=== PATIENT | female | born 1950 | race Caucasian/White ===

== ENCOUNTER → 2017-07-12 | Outpatient (CLI) | payer MEDICARE, OTHER ==
--- NOTE | 2017-07-12 10:07 | PCVCIMAG ---
APPROVED REPORT Indications Stenosis History of Smoking Surgery/Intervention Endarterectomy: right Doppler Spectral Velocity Analysis PSV / EDVPSV / EDV ECA (R) 129 / 15 cm/sECA (L) 111 / 13 cm/s dICA (R) 83 / 26 cm/sdICA (L) 75 / 25 cm/s Vin (R) 91 / 32 cm/smICA (L) 100 / 27 cm/s pICA (R) 62 / 20 cm/spICA (L) 165 / 46 cm/s Bulb (R) 72 / 11 cm/sBulb (L) 80 / 16 cm/s dCCA (R) 53 / 13 cm/sdCCA (L) 67 / 17 cm/s mCCA (R) 44 / 10 cm/smCCA (L) 50 / 10 cm/s pCCA (R) pCCA (L) 65 / 11 cm/s Vert (R) 41 / 12 cm/sVert (L) 52 / 13 cm/s ICA/CCA 1.72ICA/CCA 2.46 Basic Measurements Blood Pressure: Pulses: Right Left RightLeft Brachial(Sitting) 134/96buJa908/72mmHgTemporal Real Time B-Mode Imaging Vert. (R)AntegradeVert. (L)Antegrade Findings The right carotid bulb has mild calcified plaque. The left proximal internal carotid artery shows <40% stenosis. The right common carotid artery shows no significant stenosis. The right external carotid artery shows <50% stenosis. The left carotid bulb has moderately severe calcified plaque. The left proximal internal carotid artery shows 60-70% stenosis. The left common carotid artery shows <40% stenosis. The left external carotid artery shows no significant stenosis. Conclusion 1. Right internal carotid artery stenosis (<40%). Prior right endarterectomy 2. Left internal carotid artery stenosis (60-70%) 3. Antegrade vertebral flow
== END | disposition home or self-care (01) ==
LOC: PCVCIMAG 08:23
PROVIDERS: ATTEND Internal Medicine
DX: I65.23 Occlusion and stenosis of bilateral carotid arteries (principal); I25.10 Atherosclerotic heart disease of native coronary artery without angina pectoris; I10 Essential (primary) hypertension; I73.9 Peripheral vascular disease, unspecified; E78.5 Hyperlipidemia, unspecified; G47.33 Obstructive sleep apnea (adult) (pediatric); J44.9 Chronic obstructive pulmonary disease, unspecified; Z95.1 Presence of aortocoronary bypass graft; Z95.5 Presence of coronary angioplasty implant and graft; Z90.710 Acquired absence of both cervix and uterus; Z79.82 Long term (current) use of aspirin; Z87.891 Personal history of nicotine dependence
CPT/HCPCS: 80061; 93005; 93880; G0463

== ENCOUNTER → 2017-07-20 | Outpatient (CLI) | payer MEDICARE ==
--- NOTE | 2017-07-20 11:15 | PCVCIMAG ---
APPROVED REPORT Study performed: 07/20/2017 09:22:40 EXAM: Comprehensive 2D, Doppler, and color-flow Echocardiogram Patient Location: Echo lab Status: routine BSA: 1.94 HR: 57 bpmBP: 126/74 mmHg Rhythm: Bradycardia Other Information Study Quality: Good Risk Factors: Cardiac Risk Factors: SOB, HTN Indications COPD Dyspnea CAD CABG 2D Dimensions LVEF(%): 50.19 (>50%) IVSd: 9.63 (7-11mm) LVDd: 49.09 mm PWd: 9.24 (7-11mm) LVDs: 36.55 (25-40mm) Left Atrium: 37.74 (27-40mm) Aortic Root: 31.92 mm LV Single Plane 4CH: 53.44 % LV Single Plane 2CH: 68.07 %Murillo's LVEF: 60.76 % Biplane EF: 62.8 % Volumes Left Atrial Volume (Systole) Single Plane 4CH: 66.90 mLSingle Plane 2CH: 62.82 mL LA ESV Index: 34.00 mL/m2 Aortic Valve AoV Peak Hernandez.: 1.42 m/s AO Peak Gr.: 8.08 mmHgLVOT Max P.13 mmHg LVOT Max V: 1.02 m/s AI Vmax: 3.84 m/s AI [place]: 2.17 m/s2 AI PHT: 511.69 ms Mitral Valve E/A Ratio: 0.8 MV Decel. Time: 263.24 ms MV E Max Hernandez.: 0.71 m/s MV A Hernandez.: 0.84 m/s IVRT: 96.89 ms Pulmonary Valve PV Peak Hernandez.: 0.97 m/sPV Peak Gr.: 3.78 mmHg Pulmonary Vein P Vein S: 0.39 m/sP Vein A: 0.30 m/s P Vein D: 0.48 m/sP Vein A Dur.: 103.8 msec P Vein S/D Ratio: 0.81 Tricuspid Valve TR Peak Hernandez.: 2.50 m/s TR Peak Gr.: 25.10 mmHg Left Ventricle The left ventricle is normal size. There is normal LV segmental wall motion. There is normal left ventricular wall thickness. Left ventricular systolic function is normal. The left ventricular ejection fraction is within the normal range. LVEF is 55-60%. Grade I - abnormal relaxation pattern. Right Ventricle The right ventricle is normal The right ventricular systolic function is normal. Atria The left atrium size is mildly dilated The right atrium size is mildly dilated. Aortic Valve The aortic valve is minimally sclerotic Mild aortic regurgitation. There is no aortic valvular stenosis. Mitral Valve Mild mitral annular calcification Mild mitral regurgitation. No evidence of mitral valve stenosis. Tricuspid Valve The tricuspid valve is normal in structure. Mild tricuspid regurgitation with PAP of 32 mmHg. Pulmonic Valve The pulmonary valve is normal in structure. There is no pulmonic valvular regurgitation. Great Vessels The aortic root is normal in size. IVC is normal in size and collapses with >50% inspiration Pericardium There is no pericardial effusion. <Conclusion> Left ventricular systolic function is normal. There is normal LV segmental wall motion. LVEF is 55-60%. Grade I diastolic dysfunction Both atria are mildly dilated The aortic valve is minimally sclerotic. Mild aortic regurgitation, no stenosis. Mild mitral annular calcification. Mild mitral regurgitation. Pulmonary artery pressure of 32mmHg There is no pericardial effusion.
== END | disposition home or self-care (01) ==
LOC: PCVCIMAG 09:17
PROVIDERS: ATTEND Internal Medicine
DX: I08.3 Combined rheumatic disorders of mitral, aortic and tricuspid valves (principal); I25.10 Atherosclerotic heart disease of native coronary artery without angina pectoris; J44.9 Chronic obstructive pulmonary disease, unspecified; I73.9 Peripheral vascular disease, unspecified; I10 Essential (primary) hypertension; E78.5 Hyperlipidemia, unspecified; I65.23 Occlusion and stenosis of bilateral carotid arteries; Z95.1 Presence of aortocoronary bypass graft
CPT/HCPCS: 93306

== ENCOUNTER → 2018-01-24 | Outpatient (CLI) | payer MEDICARE | END | disposition home or self-care (01) | LOC: PCVCCLINIC 10:25 | DX: I25.10 Atherosclerotic heart disease of native coronary artery without angina pectoris (principal); I10 Essential (primary) hypertension; I65.23 Occlusion and stenosis of bilateral carotid arteries; I73.9 Peripheral vascular disease, unspecified; E78.5 Hyperlipidemia, unspecified; G47.33 Obstructive sleep apnea (adult) (pediatric); R94.31 Abnormal electrocardiogram [ECG] [EKG]; Z95.1 Presence of aortocoronary bypass graft; Z99.89 Dependence on other enabling machines and devices; Z87.891 Personal history of nicotine dependence; Z79.899 Other long term (current) drug therapy; Z79.82 Long term (current) use of aspirin | CPT/HCPCS: 80061; 93005; G0463 ==

== ENCOUNTER → 2018-08-12 | Outpatient (CLI) | payer MEDICARE ==
--- NOTE | 2018-08-12 10:11 | PCVCIMAG ---
APPROVED REPORT Indications Stenosis Risk Factors Hypertension: Hyperlipidemia CAD, Surgery/Intervention Endarterectomy: right Doppler Spectral Velocity Analysis PSV / EDVPSV / EDV ECA (R) 96 / 9 cm/sECA (L) 96 / 15 cm/s dICA (R) 57 / 20 cm/sdICA (L) 75 / 30 cm/s Vin (R) 82 / 29 cm/smICA (L) 100 / 31 cm/s pICA (R) 58 / 19 cm/spICA (L) 159 / 50 cm/s Bulb (R) 59 / 13 cm/sBulb (L) 64 / 18 cm/s dCCA (R) 55 / 15 cm/sdCCA (L) 60 / 19 cm/s mCCA (R) 49 / 12 cm/smCCA (L) 59 / 16 cm/s Vert (R) 41 / 11 cm/sVert (L) 53 / 16 cm/s ICA/CCA 1.49ICA/CCA 2.65 Basic Measurements Blood Pressure: Pulses: Right Left RightLeft Brachial(Sitting) 152/33fhFd561/78mmHgTemporal Real Time B-Mode Imaging Vert. (R)AntegradeVert. (L)Antegrade Findings The right carotid bulb has mild-moderate calcified plaque. The right proximal internal carotid artery shows <40% stenosis. The right common carotid artery shows no significant stenosis. The right external carotid artery shows no significant stenosis. The left carotid bulb has moderate calcified plaque. The left proximal internal carotid artery shows 60-70% stenosis. The left common carotid artery shows <40% stenosis. The left external carotid artery shows no significant stenosis. Conclusion Right internal carotid artery shows <40% stenosis. Prior right CEA Left common carotid artery stenosis (<40%). Left proximal internal carotid artery 60-70% stenosis Antegrade vertebral flow Similar to June 2017
== END | disposition home or self-care (01) ==
LOC: PCVCIMAG 15:18
PROVIDERS: ATTEND Internal Medicine
DX: I25.10 Atherosclerotic heart disease of native coronary artery without angina pectoris (principal); I65.23 Occlusion and stenosis of bilateral carotid arteries; I10 Essential (primary) hypertension; I73.9 Peripheral vascular disease, unspecified; E78.5 Hyperlipidemia, unspecified; G47.33 Obstructive sleep apnea (adult) (pediatric); Z99.89 Dependence on other enabling machines and devices; Z95.1 Presence of aortocoronary bypass graft; Z87.891 Personal history of nicotine dependence; Z79.82 Long term (current) use of aspirin
CPT/HCPCS: 80061; 93005; 93880; G0463

== ENCOUNTER → 2019-01-17 | Outpatient (CLI) | payer MEDICARE | END | disposition home or self-care (01) | LOC: PCVCCLINIC 10:45 | PROVIDERS: ATTEND Internal Medicine | DX: I25.10 Atherosclerotic heart disease of native coronary artery without angina pectoris (principal); I10 Essential (primary) hypertension; I65.23 Occlusion and stenosis of bilateral carotid arteries; I73.9 Peripheral vascular disease, unspecified; E78.5 Hyperlipidemia, unspecified; G47.33 Obstructive sleep apnea (adult) (pediatric); J44.9 Chronic obstructive pulmonary disease, unspecified; Z95.1 Presence of aortocoronary bypass graft; Z99.89 Dependence on other enabling machines and devices; Z79.899 Other long term (current) drug therapy | CPT/HCPCS: 36415; 80061; 93005; G0463 ==

== ENCOUNTER → 2019-09-13 | Outpatient (CLI) | payer MEDICARE ==
[~2019-09-13] MED LIST: REGADENOSON 0.4 MG/5 ML DISP.SYRIN. IV ONE
--- NOTE | 2019-09-13 09:44 | PCVCIMAG ---
APPROVED REPORT Indications Stenosis Risk Factors Hypertension: Hyperlipidemia CAD Surgery/Intervention Endarterectomy: right Doppler Spectral Velocity Analysis PSV / EDVPSV / EDV ECA (R) 123 / 17 cm/sECA (L) 119 / 19 cm/s dICA (R) 84 / 29 cm/sdICA (L) 62 / 25 cm/s Vin (R) 85 / 35 cm/smICA (L) 101 / 36 cm/s pICA (R) 88 / 27 cm/spICA (L) 158 / 54 cm/s Bulb (R) 69 / 15 cm/sBulb (L) 102 / 22 cm/s dCCA (R) 51 / 15 cm/sdCCA (L) 75 / 21 cm/s mCCA (R) 47 / 12 cm/smCCA (L) 79 / 20 cm/s Vert (R) 41 / 11 cm/sVert (L) 52 / 14 cm/s ICA/CCA 1.73ICA/CCA 2.11 Basic Measurements Blood Pressure: Pulses: Right Left RightLeft Brachial(Sitting) 138/08mgHk008/82mmHgTemporal Real Time B-Mode Imaging Vert. (R)AntegradeVert. (L)Antegrade Findings The right carotid bulb has moderate plaque. The right proximal internal carotid artery shows <40% stenosis. The right common carotid artery shows no significant stenosis. The right external carotid artery shows no significant stenosis. The left carotid bulb has moderately severe calcified plaque. The left proximal internal carotid artery shows 60-70% stenosis. The left common carotid artery shows <40% stenosis. The left external carotid artery shows no significant stenosis. Conclusion 1. Right internal carotid artery stenosis (<40%); prior carotid endarterectomy 2. Left common carotid artery stenosis (<40%) 3. Left internal carotid artery stenosis (60-70%) 4. Antegrade vertebral flow Comparison with the study dated July 2018, no significant differences are identified.
--- NOTE | 2019-09-13 16:59 | PCVCIMAG ---
APPROVED REPORT Imaging Protocol: Rest Tc-99m/Stress Tc-99m 1 day Study performed: 09/13/2019 09:28:01 Indication: Dyspnea, CAD Patient Location: Out-Patient Stress Nurse: Ana Ye RN, Tamiko Becerril RN GA Tech:Deann JOLEEN AmandaMT Ht: 5 ft 3 in Wt: 201 lbs BSA: 1.94 m2 HR: 69 bpm BP: 182/80 mmHg BMI: 35.6 Rhythm: Normal Sinus Rhythm, RBBB Medical History Medical History: Hyperlipidemia, HTN, CVD, CAD, COPD, PVD, Former Smoker Medications: Metoprolol, Aspirin, Simvastatin, HCTZ Allergies: Atenolol Cardiac Risk Factors: Age Previous Cardiac Procedures: 2012 CABG Pretest Chest Pain Characteristics: No chest pain Meds Held (24 hrs): Metoprolol Resting Data Rest SPECT myocardial perfusion imaging was performed in supine position 45 minutes following the intravenous injection of 10.5 mCi of Tc-99m Sestamibi. Time of rest injection: 929 Date: 09/13/2019 Administration Route: IV Administration Site: Right AC Pharmacologic Stress Pharmacologic stress test was performed by injecting Regadenoson 0.4 mg IV push over 10-15 seconds immediately followed by the intravenous injection of 32.7 mCi of Tc-99m Sestamibi. Time of stress injection: 1050 Date: 09/13/2019 Administration Route: IV Administration Site: Right AC Gated Stress SPECT was performed 45 minutes after stress injection. The images were gated to evaluate regional wall motion and calculate left ventricular ejection fraction. Stress Test Details Stress Test: Pharmacologic stress testing performed using 0.4 mg of regadenoson per 5 mL given IV over 10 seconds. Reason for pharmacologic stress test: physical limitation, osteoarthritis. HRMax Heart Rate (APMHR): 153 bpm Resting HR: 69 bpmTarget HR (85% APMHR): 130 bpm Max HR Achieved: 95 bpm % of APMHR: 62 Recovery HR: 86 bpm BP Resting BP: 182/80 mmHg Max BP: 131/66 mmHg Recovery BP: 152/79 mmHg ECG Resting ECG: Normal Sinus Rhythm, RBBB Stress ECG: Sinus Rhythm, RBBB ST Change: None Maximum ST Deviation: 0 mm Arrhythmia: None Recovery ECG: Sinus Rhythm, RBBB Recovery ST Change: None Recovery ST Deviation: 0 mm Recovery Arrhythmia: None Clinical Reason for Termination: Completed protocol Stress Symptoms: Abdominal discomfort, Dyspnea Symptoms resolved with caffeine. Stress ECG Conclusion ECG: Non-ischemic Clinical: Non-ischemic Study Data Post stress, the left ventricular ejection was 59%.. SSS: 3 SRS: 4 SDS: 0 TID = 1.05. Perfusion No evidence of stress induced ischemia or prior myocardial infarction. Wall Motion Normal left ventricular size and function with no regional wall motion abnormalities. Nuclear Conclusion No evidence of stress induced ischemia or prior myocardial infarction. Normal left ventricular size and function with no regional wall motion abnormalities. Post stress, the left ventricular ejection was 59%. No prior study available for comparison. Interpreted by: Jose Quick MD Electronically Approved: 09/13/2019 12:23:11 <Conclusion> ECG: Non-ischemic Clinical: Non-ischemic
== END | disposition home or self-care (01) ==
LOC: PCVCIMAG 07:53
PROVIDERS: ATTEND Internal Medicine
DX: I65.23 Occlusion and stenosis of bilateral carotid arteries (principal); E78.5 Hyperlipidemia, unspecified; I10 Essential (primary) hypertension; J44.9 Chronic obstructive pulmonary disease, unspecified; K21.9 Gastro-esophageal reflux disease without esophagitis; J45.909 Unspecified asthma, uncomplicated; G47.33 Obstructive sleep apnea (adult) (pediatric); Z87.891 Personal history of nicotine dependence; Z79.899 Other long term (current) drug therapy; Z95.1 Presence of aortocoronary bypass graft; Z90.710 Acquired absence of both cervix and uterus; Z82.49 Family history of ischemic heart disease and other diseases of the circulatory system; Z82.3 Family history of stroke; Z72.89 Other problems related to lifestyle; Z88.8 Allergy status to other drugs, medicaments and biological substances; Z99.89 Dependence on other enabling machines and devices; Z90.49 Acquired absence of other specified parts of digestive tract; Z79.82 Long term (current) use of aspirin
CPT/HCPCS: 36415; 78452; 80061; 93005; 93017; 93880; A9500; G0463; J2785